=== PATIENT | female | born 1960 | race Caucasian/White ===

== ENCOUNTER 2022-10-16 08:25 | Day surgery (SDC) | payer BC ==
[~2022-10-16 08:25] MED LIST: Midazolam 1 MG/ML 2 ML SDV ONE; Propofol 200 MG/20 ML SDV ONE; fentaNYL 50 MCG/ML SDV ONE
[2022-10-16] MEDS ORDERED: Lactated Ringers 1,000 ML IV SCH (09:00)
== END 2022-10-16 12:52 | disposition home or self-care (01) ==
LOC: JP.SDS 08:25
PROVIDERS: ATTEND Student in an Organized Health Care Education/Training Program
DX: Z12.11 Encounter for screening for malignant neoplasm of colon (principal); D12.4 Benign neoplasm of descending colon; K57.30 Diverticulosis of large intestine without perforation or abscess without bleeding; J45.909 Unspecified asthma, uncomplicated
CPT/HCPCS: 45380; 88305; J2250; J2704; J3010; J7120